=== PATIENT | male | born 1970 | race African-American/Black ===

== ENCOUNTER 2022-02-22 13:02 | Emergency (ER) | payer MEDICAID ==
[~2022-02-22] VITALS: Ht 188 cm; Wt 104.4 kg
[2022-02-22 13:06] VITALS: BP 165/100
[2022-02-22 13:55] LABS: BASOPHILS % (AUTO) 0.5 % (0.0-2.0); EOSINOPHILS # (AUTO) 0.1 K/uL (0-0.4); EOSINOPHILS % (AUTO) 1.2 % (0.0-4.0); HEMATOCRIT 36.1 % (36-52); HEMOGLOBIN 11.6 g/dL (12.0-18.0); LYMPHOCYTES # (AUTO) 1.2 K/uL (2.0-11.5); LYMPHOCYTES % (AUTO) 21.9 % (20.5-51.1); MEAN CORPUSCULAR HEMOGLOBIN 26 pg (27-31); MEAN CORPUSCULAR HGB CONC 32 g/dL (33-37); MEAN CORPUSCULAR VOLUME 79.6 fL (80-94); MONOCYTES # (AUTO) 0.6 K/uL (0.8-1.0); MONOCYTES % (AUTO) 10.7 % (1.7-9.3); NEUTROPHILS # (AUTO) 3.5 K/uL (1.8-7.7); NEUTROPHILS % (AUTO) 65.7 % (42.2-75.2); PLATELET COUNT (AUTO) 234 K/uL (140-450); RED BLOOD CELL COUNT(AUTO) 4.53 MIL/uL (4.20-6.10); RED CELL DISTRIBUTION WIDTH 17.8 % (11.6-13.7); WHITE BLOOD COUNT (AUTO) 5.3 K/uL (4.8-10.8)
[2022-02-22 14:12] LABS: ALBUMIN 3.5 g/dL (3.4-5.0); ANION GAP 12.6 (8-16); CARBON DIOXIDE 29.9 mmol/L (21-32); CREATININE 0.9 mg/dL (0.6-1.3); POTASSIUM 4.5 mmol/L (3.5-5.1); TOTAL BILIRUBIN 0.7 mg/dL (0.0-1.0)
--- NOTE | 2022-02-22 16:25 | NUR ---
[facility] CALLED PT BACK, NO ANSWER.
--- NOTE | 2022-02-22 16:30 | NUR ---
PT CALLED FOR DC, NO ANSWER.
--- NOTE | 2022-02-22 16:35 | NUR ---
CALLED FOR DC NO ANSWER.
--- NOTE | 2022-02-22 16:41 | NUR ---
Note kasie in EDM - 02/22/22 at 1708 by MED LEFT WITHOUT PAPERWORK Patient discharged with v/s stable. Written and verbal after care instructions given and explained. Patient verbalized understanding. Ambulatory with steady gait. All questions addressed prior to discharge. Advised to follow up with PMD.
[2022-02-22 17:08] VITALS: BP 165/100
--- NOTE | 2022-02-22 17:08 | NUR ---
PATIENT ELOPED FROM FACILITY. DISCHARGE INSTRUCTIONS NOT GIVEN TO PATIENT. DR. HITCHCOCK NOTIFIED.
--- NOTE | 2022-02-22 17:11 | NUR ---
CALLED AGAIN PER [facility]. NO ANSWER. UNABLE TO LEAVE [facility] [place] STATES VOICEMAIL IS FULL. [facility] MADE AWARE.
--- NOTE | 2022-02-22 17:28 | NUR ---
CALLED [facility]ART, NO ANSWER.
== END 2022-02-22 17:08 | disposition left against medical advice (07) ==
LOC: MED 13:02
DX: R10.13 Epigastric pain (principal); I10 Essential (primary) hypertension; Z79.899 Other long term (current) drug therapy
CPT/HCPCS: 36415; 80053; 84484; 85025; 85379; 93005; 99284